=== PATIENT | male | born 1930 | race Caucasian/White ===

== ENCOUNTER 2018-02-15 22:02 | Inpatient (IN) | payer MEDICARE, OTHER ==
[2018-02-15] MEDS: ONDANSETRON 4 MG INJ IV (22:49)
[2018-02-15] MEDS: morphine 4 MG/ML VIAL IV (22:49)
[2018-02-15 22:56] LABS: ADD MAN DIFF? NO
[2018-02-15 22:58] LABS: BASOPHILS % 0.5 % (0.0-2.0); EOSINOPHILS % 0.3 % (0.0-7.0); HEMATOCRIT 35.8 % (42.0-52.0); HEMOGLOBIN 12.3 g/dl (14.0-18.0); LYMPHOCYTES # 1.3 10^3/ul (0.8-2.9); LYMPHOCYTES % 21.1 % (15.0-51.0); MEAN CORPUSCULAR HGB CONC 34.4 g/dl (32.0-37.0); MEAN CORPUSCULAR VOLUME 90.2 fl (82.0-101.0); MEAN PLATELET VOLUME 10.5 fl (7.4-10.4); MONOCYTE # 0.3 10^3/ul (0.3-0.9); MONOCYTES % 5.3 % (0.0-11.0); NEUTROPHIL # 4.5 10^3/ul (1.6-7.5); NEUTROPHILS % 72.2 % (39.0-77.0); PLATELET COUNT 153 10^3/UL (140-415); RED BLOOD COUNT 3.97 10^6/ul (4.70-6.10); RED CELL DISTRIBUTION WIDTH 14.8 % (11.5-14.5)
[2018-02-15 22:58] LABS: WHITE BLOOD COUNT 6.2 10^3/ul (4.8-10.8)
[2018-02-15 23:27] LABS: ALANINE AMINOTRANSFERASE 25 IU/L (13-69); ALBUMIN 3.7 g/dl (3.3-4.9); ALBUMIN/GLOBULIN RATIO 0.88; ALKALINE PHOSPHATASE 66 IU/L (42-121); ANION GAP 13 (8-16); ASPARTATE AMINO TRANSFERASE 24 IU/L (15-46); BILIRUBIN,INDIRECT 0.6 mg/dl (0-1.1); BILIRUBIN,TOTAL 0.6 mg/dl (0.2-1.3); BLOOD UREA NITROGEN 27 mg/dl (7-20); CARBON DIOXIDE 26 mmol/L (21-31); CHLORIDE 104 mmol/L (97-110); CREATININE 0.83 mg/dl (0.61-1.24); GLUCOSE 119 mg/dl (70-220); LIPASE 156 U/L (23-300); POTASSIUM 4.4 mmol/L (3.5-5.1); SODIUM 139 mmol/L (135-144); TOTAL PROTEIN 7.9 g/dl (6.1-8.1)
[2018-02-15 23:36] LABS: ADD UMIC YES; UR ASCORBIC ACID 40 mg/dL (NEGATIVE); UR BILIRUBIN (Dip) NEGATIVE (NEGATIVE); UR BLOOD (Dip) NEGATIVE (NEGATIVE); UR CALCIUM OXALATE CRYSTAL MANY /HPF (NONE SEEN); UR CLARITY SLIGHTLY CLOUDY (CLEAR); UR COLOR YELLOW (YELLOW); UR GLUCOSE (Dip) NEGATIVE (NEGATIVE); UR KETONES (Dip) NEGATIVE (NEGATIVE); UR LEUKOCYTE ESTERASE (Dip) NEGATIVE Leu/ul (NEGATIVE); UR MUCUS FEW /HPF (NONE SEEN); UR NITRITE (Dip) NEGATIVE (NEGATIVE); UR RBC 1 /HPF (0-5); UR SPECIFIC GRAVITY (Dip) 1.026 (1.003-1.030); UR TOTAL PROTEIN (Dip) 1+ mg/dl (NEGATIVE); UR UROBILINOGEN (Dip) 1+ mg/dL (NEGATIVE); UR WBC 0 /HPF (0-5)
[2018-02-16] MEDS: LIDOCAINE 2% JELLY 5 ML TOP (00:37)
[2018-02-16] MEDS ORDERED: ONDANSETRON 4 MG INJ IV (02:00)
[2018-02-16] MEDS ORDERED: morphine 2 MG INJ IV (02:00)
[2018-02-16] MEDS: DEXTROSE 5%-0.45% NACL 1,000 ML IV ×4 (02:06→23:22)
[2018-02-16 05:51] LABS: ADD MAN DIFF? NO
[2018-02-16 06:01] LABS: BASOPHILS % 0.2 % (0.0-2.0); EOSINOPHILS % 0.4 % (0.0-7.0); HEMATOCRIT 32.2 % (42.0-52.0); HEMOGLOBIN 10.9 g/dl (14.0-18.0); LYMPHOCYTES # 1.4 10^3/ul (0.8-2.9); LYMPHOCYTES % 30.6 % (15.0-51.0); MEAN CORPUSCULAR HEMOGLOBIN 30.9 pg (29.0-33.0); MEAN CORPUSCULAR HGB CONC 33.9 g/dl (32.0-37.0); MEAN CORPUSCULAR VOLUME 91.2 fl (82.0-101.0); MEAN PLATELET VOLUME 10.1 fl (7.4-10.4); MONOCYTE # 0.3 10^3/ul (0.3-0.9); MONOCYTES % 6.5 % (0.0-11.0); NEUTROPHIL # 2.9 10^3/ul (1.6-7.5); NEUTROPHILS % 61.9 % (39.0-77.0); PLATELET COUNT 129 10^3/UL (140-415); RED BLOOD COUNT 3.53 10^6/ul (4.70-6.10); RED CELL DISTRIBUTION WIDTH 14.9 % (11.5-14.5)
[2018-02-16 06:01] LABS: WHITE BLOOD COUNT 4.6 10^3/ul (4.8-10.8)
[2018-02-16] MEDS: PIPER-TAZO 2.25 GM (PMX) 50 ML IVPB ×3 (06:16→18:02)
[2018-02-16 06:25] LABS: ALANINE AMINOTRANSFERASE 21 IU/L (13-69); ALBUMIN 3.1 g/dl (3.3-4.9); ALBUMIN/GLOBULIN RATIO 0.79; ALKALINE PHOSPHATASE 53 IU/L (42-121); ANION GAP 10 (8-16); ASPARTATE AMINO TRANSFERASE 22 IU/L (15-46); BILIRUBIN,INDIRECT 0.6 mg/dl (0-1.1); BILIRUBIN,TOTAL 0.6 mg/dl (0.2-1.3); BLOOD UREA NITROGEN 22 mg/dl (7-20); CALCIUM 8.6 mg/dl (8.4-10.2); CARBON DIOXIDE 28 mmol/L (21-31); CHLORIDE 104 mmol/L (97-110); GLUCOSE 109 mg/dl (70-220); MAGNESIUM 2.1 mg/dl (1.7-2.5); PHOSPHORUS 2.7 mg/dl (2.5-4.9); SODIUM 138 mmol/L (135-144)
[2018-02-16] MEDS: BALSAM PERU/CASTOR OIL 60 GM TUBE TOP ×2 (16:23→21:15)
[2018-02-17] MEDS: PIPER-TAZO 2.25 GM (PMX) 50 ML IVPB ×3 (00:16→12:20)
[2018-02-17 06:06] LABS: ADD MAN DIFF? NO
[2018-02-17 06:08] LABS: WHITE BLOOD COUNT 4.3 10^3/ul (4.8-10.8)
[2018-02-17 06:08] LABS: BASOPHILS % 0.5 % (0.0-2.0); EOSINOPHILS % 0.5 % (0.0-7.0); HEMATOCRIT 33.8 % (42.0-52.0); HEMOGLOBIN 11.7 g/dl (14.0-18.0); LYMPHOCYTES # 1.8 10^3/ul (0.8-2.9); LYMPHOCYTES % 40.7 % (15.0-51.0); MEAN CORPUSCULAR HEMOGLOBIN 31.4 pg (29.0-33.0); MEAN CORPUSCULAR HGB CONC 34.6 g/dl (32.0-37.0); MEAN CORPUSCULAR VOLUME 90.6 fl (82.0-101.0); MEAN PLATELET VOLUME 9.9 fl (7.4-10.4); MONOCYTE # 0.3 10^3/ul (0.3-0.9); MONOCYTES % 6.3 % (0.0-11.0); NEUTROPHIL # 2.2 10^3/ul (1.6-7.5); NEUTROPHILS % 51.5 % (39.0-77.0); PLATELET COUNT 134 10^3/UL (140-415); RED BLOOD COUNT 3.73 10^6/ul (4.70-6.10); RED CELL DISTRIBUTION WIDTH 14.9 % (11.5-14.5)
[2018-02-17 06:58] LABS: ALANINE AMINOTRANSFERASE 15 IU/L (13-69); ALBUMIN/GLOBULIN RATIO 0.78; ALKALINE PHOSPHATASE 54 IU/L (42-121); ANION GAP 9 (8-16); ASPARTATE AMINO TRANSFERASE 19 IU/L (15-46); BILIRUBIN,INDIRECT 1.3 mg/dl (0-1.1); BILIRUBIN,TOTAL 1.3 mg/dl (0.2-1.3); BLOOD UREA NITROGEN 11 mg/dl (7-20); CALCIUM 8.9 mg/dl (8.4-10.2); CARBON DIOXIDE 27 mmol/L (21-31); CHLORIDE 108 mmol/L (97-110); CREATININE 0.89 mg/dl (0.61-1.24); GLUCOSE 91 mg/dl (70-220); POTASSIUM 4.7 mmol/L (3.5-5.1); SODIUM 139 mmol/L (135-144); TOTAL PROTEIN 6.8 g/dl (6.1-8.1)
[2018-02-17] MEDS: BALSAM PERU/CASTOR OIL 60 GM TUBE TOP ×2 (08:32→20:31)
[2018-02-17] MEDS: DEXTROSE 5%-0.45% NACL 1,000 ML IV (14:29)
[2018-02-18] MEDS: DEXTROSE 5%-0.45% NACL 1,000 ML IV ×3 (03:06→17:42)
[2018-02-18 10:00] LABS: ADD MAN DIFF? NO
[2018-02-18 10:01] LABS: WHITE BLOOD COUNT 3.7 10^3/ul (4.8-10.8)
[2018-02-18 10:01] LABS: BASOPHILS % 0.3 % (0.0-2.0); EOSINOPHILS % 0.5 % (0.0-7.0); HEMATOCRIT 34.2 % (42.0-52.0); HEMOGLOBIN 12.2 g/dl (14.0-18.0); LYMPHOCYTES # 1.4 10^3/ul (0.8-2.9); LYMPHOCYTES % 37.5 % (15.0-51.0); MEAN CORPUSCULAR HEMOGLOBIN 31.4 pg (29.0-33.0); MEAN CORPUSCULAR HGB CONC 35.7 g/dl (32.0-37.0); MEAN CORPUSCULAR VOLUME 88.1 fl (82.0-101.0); MEAN PLATELET VOLUME 9.8 fl (7.4-10.4); MONOCYTE # 0.2 10^3/ul (0.3-0.9); MONOCYTES % 5.9 % (0.0-11.0); NEUTROPHIL # 2.1 10^3/ul (1.6-7.5); NEUTROPHILS % 55.3 % (39.0-77.0); PLATELET COUNT 135 10^3/UL (140-415); RED BLOOD COUNT 3.88 10^6/ul (4.70-6.10); RED CELL DISTRIBUTION WIDTH 14.4 % (11.5-14.5)
[2018-02-18 10:20] LABS: ANION GAP 11 (8-16); BLOOD UREA NITROGEN 8 mg/dl (7-20); CALCIUM 8.4 mg/dl (8.4-10.2); CARBON DIOXIDE 24 mmol/L (21-31); CHLORIDE 104 mmol/L (97-110); CREATININE 0.63 mg/dl (0.61-1.24); GLUCOSE 98 mg/dl (70-220); POTASSIUM 3.3 mmol/L (3.5-5.1); SODIUM 136 mmol/L (135-144)
[2018-02-18] MEDS: BALSAM PERU/CASTOR OIL 60 GM TUBE TOP ×2 (12:27→20:39)
[2018-02-18] MEDS: POTASSIUM CHLORIDE 100 ML IVPB (21:49)
[2018-02-19] MEDS: DEXTROSE 5%-0.45% NACL 1,000 ML IV ×4 (05:14→20:00)
[2018-02-19 06:26] LABS: ADD MAN DIFF? NO
[2018-02-19 06:38] LABS: BASOPHILS % 0.6 % (0.0-2.0); EOSINOPHILS % 0.8 % (0.0-7.0); HEMATOCRIT 34.9 % (42.0-52.0); HEMOGLOBIN 12.4 g/dl (14.0-18.0); LYMPHOCYTES # 1.2 10^3/ul (0.8-2.9); LYMPHOCYTES % 34.4 % (15.0-51.0); MEAN CORPUSCULAR HEMOGLOBIN 31.5 pg (29.0-33.0); MEAN CORPUSCULAR HGB CONC 35.5 g/dl (32.0-37.0); MEAN CORPUSCULAR VOLUME 88.6 fl (82.0-101.0); MEAN PLATELET VOLUME 10.6 fl (7.4-10.4); MONOCYTE # 0.2 10^3/ul (0.3-0.9); MONOCYTES % 6.1 % (0.0-11.0); NEUTROPHIL # 2.1 10^3/ul (1.6-7.5); NEUTROPHILS % 57.8 % (39.0-77.0); PLATELET COUNT 117 10^3/UL (140-415); RED BLOOD COUNT 3.94 10^6/ul (4.70-6.10); RED CELL DISTRIBUTION WIDTH 14.7 % (11.5-14.5)
[2018-02-19 06:38] LABS: WHITE BLOOD COUNT 3.6 10^3/ul (4.8-10.8)
[2018-02-19 06:54] LABS: ANION GAP 12 (8-16); BLOOD UREA NITROGEN 8 mg/dl (7-20); CALCIUM 8.5 mg/dl (8.4-10.2); CARBON DIOXIDE 20 mmol/L (21-31); CHLORIDE 106 mmol/L (97-110); CREATININE 0.66 mg/dl (0.61-1.24); GLUCOSE 102 mg/dl (70-220); POTASSIUM 3.8 mmol/L (3.5-5.1); SODIUM 134 mmol/L (135-144)
[2018-02-19] MEDS: BALSAM PERU/CASTOR OIL 60 GM TUBE TOP ×2 (08:50→21:00)
[2018-02-19] MEDS: metroNIDAZOLE 500 MG TAB PO ×3 (16:02→22:00)
[2018-02-19] MEDS: CIPROFLOXACIN 500 MG TAB PO ×2 (16:02→17:22)
[2018-02-19] MEDS: LACTULOSE 30ML CUP PO (17:22)
[2018-02-19] MEDS: GLYCERIN (ADULT) SUPP PR (17:22)
[2018-02-19] MEDS ORDERED: morphine LIQ (10 MG/5 ML) CUP PO (18:00)
[2018-02-19] MEDS ORDERED: morphine 2 MG INJ IV (18:00)
[2018-02-20] MEDS: LACTULOSE 30ML CUP PO ×4 (00:25→18:00)
[2018-02-20] MEDS: DEXTROSE 5%-0.45% NACL 1,000 ML IV ×2 (00:25→13:08)
[2018-02-20] MEDS: CIPROFLOXACIN 500 MG TAB PO ×2 (05:37→18:00)
[2018-02-20] MEDS: metroNIDAZOLE 500 MG TAB PO ×3 (05:38→20:03)
[2018-02-20] MEDS: BALSAM PERU/CASTOR OIL 60 GM TUBE TOP ×2 (08:55→20:13)
[2018-02-20 10:37] LABS: ADD MAN DIFF? NO
[2018-02-20 10:42] LABS: BASOPHILS % 0.2 % (0.0-2.0); EOSINOPHILS % 0.4 % (0.0-7.0); HEMATOCRIT 34.8 % (42.0-52.0); HEMOGLOBIN 12.3 g/dl (14.0-18.0); LYMPHOCYTES # 1.6 10^3/ul (0.8-2.9); LYMPHOCYTES % 33.7 % (15.0-51.0); MEAN CORPUSCULAR HEMOGLOBIN 31.4 pg (29.0-33.0); MEAN CORPUSCULAR HGB CONC 35.3 g/dl (32.0-37.0); MEAN CORPUSCULAR VOLUME 88.8 fl (82.0-101.0); MEAN PLATELET VOLUME 9.8 fl (7.4-10.4); MONOCYTE # 0.4 10^3/ul (0.3-0.9); MONOCYTES % 9.3 % (0.0-11.0); NEUTROPHIL # 2.6 10^3/ul (1.6-7.5); PLATELET COUNT 138 10^3/UL (140-415); RED BLOOD COUNT 3.92 10^6/ul (4.70-6.10); RED CELL DISTRIBUTION WIDTH 14.8 % (11.5-14.5)
[2018-02-20 10:42] LABS: WHITE BLOOD COUNT 4.6 10^3/ul (4.8-10.8)
[2018-02-20] MEDS: GLYCERIN (ADULT) SUPP PR ×2 (10:42→13:07)
[2018-02-20 11:05] LABS: ANION GAP 15 (8-16); BLOOD UREA NITROGEN 6 mg/dl (7-20); CALCIUM 8.6 mg/dl (8.4-10.2); CARBON DIOXIDE 25 mmol/L (21-31); CHLORIDE 104 mmol/L (97-110); CREATININE 0.66 mg/dl (0.61-1.24); GLUCOSE 99 mg/dl (70-220); POTASSIUM 3.5 mmol/L (3.5-5.1); SODIUM 140 mmol/L (135-144)
[2018-02-21] MEDS: DEXTROSE 5%-0.45% NACL 1,000 ML IV ×3 (01:05→22:00)
[2018-02-21 05:24] LABS: ADD MAN DIFF? NO
[2018-02-21 05:30] LABS: WHITE BLOOD COUNT 4.4 10^3/ul (4.8-10.8)
[2018-02-21 05:30] LABS: BASOPHILS % 0.5 % (0.0-2.0); EOSINOPHILS % 0.7 % (0.0-7.0); HEMATOCRIT 33.5 % (42.0-52.0); LYMPHOCYTES # 1.7 10^3/ul (0.8-2.9); LYMPHOCYTES % 39.1 % (15.0-51.0); MEAN CORPUSCULAR HEMOGLOBIN 31.5 pg (29.0-33.0); MEAN CORPUSCULAR HGB CONC 35.8 g/dl (32.0-37.0); MEAN CORPUSCULAR VOLUME 87.9 fl (82.0-101.0); MEAN PLATELET VOLUME 10.1 fl (7.4-10.4); MONOCYTE # 0.3 10^3/ul (0.3-0.9); MONOCYTES % 7.6 % (0.0-11.0); NEUTROPHIL # 2.3 10^3/ul (1.6-7.5); NEUTROPHILS % 51.6 % (39.0-77.0); PLATELET COUNT 144 10^3/UL (140-415); RED BLOOD COUNT 3.81 10^6/ul (4.70-6.10)
[2018-02-21] MEDS: CIPROFLOXACIN 500 MG TAB PO ×3 (05:50→17:32)
[2018-02-21] MEDS: metroNIDAZOLE 500 MG TAB PO ×3 (05:50→13:16)
[2018-02-21] MEDS: LACTULOSE 30ML CUP PO ×5 (05:50→17:32)
[2018-02-21 05:59] LABS: ANION GAP 11 (8-16); BLOOD UREA NITROGEN 5 mg/dl (7-20); CALCIUM 8.4 mg/dl (8.4-10.2); CARBON DIOXIDE 23 mmol/L (21-31); CHLORIDE 108 mmol/L (97-110); CREATININE 0.65 mg/dl (0.61-1.24); GLUCOSE 98 mg/dl (70-220); POTASSIUM 3.2 mmol/L (3.5-5.1); SODIUM 139 mmol/L (135-144)
[2018-02-21] MEDS: BALSAM PERU/CASTOR OIL 60 GM TUBE TOP ×2 (10:32→21:48)
[2018-02-21] MEDS: BARIUM SULF 2% 450 ML BTL (BERRY SMOOTHIE) PO (11:27)
[2018-02-21] MEDS: IOHEXOL 300MG/ML 150 ML BTL (12:45)
[2018-02-21] MEDS: SOD CHLORIDE 0.9% 100 ML (12:45)
[2018-02-21] MEDS ORDERED: POTASSIUM CHLORIDE (SR) 20 MEQ TAB PO (19:06)
[2018-02-21] MEDS: metroNIDAZOLE 500 MG/NS (PMX) 100 ML IVPB (22:22)
[2018-02-21] MEDS: CIPROFLOXACIN 400MG/D5W 200 ML IVPB (23:29)
[2018-02-21] MEDS: POTASSIUM CHLORIDE 100 ML IVPB (23:29)
[2018-02-22] MEDS: metroNIDAZOLE 500 MG/NS (PMX) 100 ML IVPB ×3 (05:25→22:25)
[2018-02-22] MEDS: LACTULOSE 30ML CUP PO ×4 (05:38→17:07)
[2018-02-22 05:52] LABS: ADD MAN DIFF? NO
[2018-02-22 05:57] LABS: WHITE BLOOD COUNT 3.7 10^3/ul (4.8-10.8)
[2018-02-22 05:57] LABS: BASOPHILS % 0.5 % (0.0-2.0); EOSINOPHILS % 0.3 % (0.0-7.0); HEMATOCRIT 32.2 % (42.0-52.0); HEMOGLOBIN 11.4 g/dl (14.0-18.0); LYMPHOCYTES # 1.5 10^3/ul (0.8-2.9); LYMPHOCYTES % 41.6 % (15.0-51.0); MEAN CORPUSCULAR HEMOGLOBIN 31.1 pg (29.0-33.0); MEAN CORPUSCULAR HGB CONC 35.4 g/dl (32.0-37.0); MEAN PLATELET VOLUME 9.8 fl (7.4-10.4); MONOCYTE # 0.3 10^3/ul (0.3-0.9); MONOCYTES % 8.1 % (0.0-11.0); NEUTROPHIL # 1.8 10^3/ul (1.6-7.5); NEUTROPHILS % 49.2 % (39.0-77.0); PLATELET COUNT 147 10^3/UL (140-415); RED BLOOD COUNT 3.66 10^6/ul (4.70-6.10); RED CELL DISTRIBUTION WIDTH 14.9 % (11.5-14.5)
[2018-02-22 06:39] LABS: ANION GAP 14 (8-16); BLOOD UREA NITROGEN 6 mg/dl (7-20); CALCIUM 8.5 mg/dl (8.4-10.2); CARBON DIOXIDE 26 mmol/L (21-31); CHLORIDE 102 mmol/L (97-110); CREATININE 0.76 mg/dl (0.61-1.24); GLUCOSE 74 mg/dl (70-220); POTASSIUM 3.8 mmol/L (3.5-5.1); SODIUM 138 mmol/L (135-144)
[2018-02-22] MEDS: DEXTROSE 5%-0.45% NACL 1,000 ML IV ×2 (08:00→14:06)
[2018-02-22] MEDS: BALSAM PERU/CASTOR OIL 60 GM TUBE TOP ×2 (09:15→22:26)
[2018-02-22] MEDS: CIPROFLOXACIN 400MG/D5W 200 ML IVPB ×2 (09:15→20:46)
[2018-02-22 15:52] LABS: CARCINOEMBRYONIC ANTIGEN 1.1 ng/ml (0.0-5.0)
[2018-02-23] MEDS: DEXTROSE 5%-0.45% NACL 1,000 ML IV ×3 (04:56→21:38)
[2018-02-23] MEDS: metroNIDAZOLE 500 MG/NS (PMX) 100 ML IVPB ×3 (05:00→22:47)
[2018-02-23] MEDS: LACTULOSE 30ML CUP PO ×4 (05:00→18:00)
[2018-02-23 05:48] LABS: ADD MAN DIFF? NO
[2018-02-23 05:50] LABS: BASOPHILS % 0.3 % (0.0-2.0); EOSINOPHILS % 0.9 % (0.0-7.0); HEMATOCRIT 30.2 % (42.0-52.0); HEMOGLOBIN 10.7 g/dl (14.0-18.0); LYMPHOCYTES # 1.5 10^3/ul (0.8-2.9); LYMPHOCYTES % 45.2 % (15.0-51.0); MEAN CORPUSCULAR HGB CONC 35.4 g/dl (32.0-37.0); MEAN CORPUSCULAR VOLUME 87.5 fl (82.0-101.0); MEAN PLATELET VOLUME 10.2 fl (7.4-10.4); MONOCYTE # 0.3 10^3/ul (0.3-0.9); MONOCYTES % 7.9 % (0.0-11.0); NEUTROPHIL # 1.5 10^3/ul (1.6-7.5); NEUTROPHILS % 45.1 % (39.0-77.0); PLATELET COUNT 133 10^3/UL (140-415); RED BLOOD COUNT 3.45 10^6/ul (4.70-6.10); RED CELL DISTRIBUTION WIDTH 14.7 % (11.5-14.5)
[2018-02-23 05:50] LABS: WHITE BLOOD COUNT 3.4 10^3/ul (4.8-10.8)
[2018-02-23 06:25] LABS: C-REACTIVE PROTEIN < 0.5 mg/dl (0.0-0.9)
[2018-02-23] MEDS: CIPROFLOXACIN 400MG/D5W 200 ML IVPB ×2 (08:30→21:38)
[2018-02-23] MEDS: BALSAM PERU/CASTOR OIL 60 GM TUBE TOP ×2 (08:31→21:38)
[2018-02-23 08:32] LABS: ERYTHROCYTE SEDIMENTATION RATE 28 mm/Hr (0-20)
[2018-02-23 11:22] LABS: ANION GAP 13 (8-16); BLOOD UREA NITROGEN 8 mg/dl (7-20); CALCIUM 8.6 mg/dl (8.4-10.2); CARBON DIOXIDE 20 mmol/L (21-31); CHLORIDE 110 mmol/L (97-110); CREATININE 0.76 mg/dl (0.61-1.24); GLUCOSE 99 mg/dl (70-220); POTASSIUM 3.3 mmol/L (3.5-5.1); SODIUM 140 mmol/L (135-144)
[2018-02-23 11:23] LABS: MAGNESIUM 1.8 mg/dl (1.7-2.5)
[2018-02-23 11:23] LABS: PHOSPHORUS 2.9 mg/dl (2.5-4.9)
[2018-02-23] MEDS: POTASSIUM CHLORIDE 20 MEQ POWDER FOR ORAL SOLN PO ×2 (12:45→14:11)
[2018-02-24] MEDS: ACETAMINOPHEN 325 MG TAB PO (04:05)
[2018-02-24] MEDS: LACTULOSE 30ML CUP PO ×4 (05:27→18:06)
[2018-02-24] MEDS: metroNIDAZOLE 500 MG/NS (PMX) 100 ML IVPB ×3 (05:27→21:28)
[2018-02-24 06:33] LABS: ADD MAN DIFF? NO
[2018-02-24 06:40] LABS: BASOPHILS % 0.3 % (0.0-2.0); EOSINOPHILS % 0.3 % (0.0-7.0); HEMATOCRIT 33.2 % (42.0-52.0); HEMOGLOBIN 11.8 g/dl (14.0-18.0); LYMPHOCYTES # 1.2 10^3/ul (0.8-2.9); LYMPHOCYTES % 30.9 % (15.0-51.0); MEAN CORPUSCULAR HEMOGLOBIN 31.1 pg (29.0-33.0); MEAN CORPUSCULAR HGB CONC 35.5 g/dl (32.0-37.0); MEAN CORPUSCULAR VOLUME 87.4 fl (82.0-101.0); MEAN PLATELET VOLUME 9.7 fl (7.4-10.4); MONOCYTE # 0.3 10^3/ul (0.3-0.9); MONOCYTES % 8.1 % (0.0-11.0); NEUTROPHIL # 2.3 10^3/ul (1.6-7.5); NEUTROPHILS % 59.9 % (39.0-77.0); PLATELET COUNT 142 10^3/UL (140-415); RED CELL DISTRIBUTION WIDTH 14.7 % (11.5-14.5)
[2018-02-24 06:40] LABS: WHITE BLOOD COUNT 3.8 10^3/ul (4.8-10.8)
[2018-02-24 07:09] LABS: ANION GAP 13 (8-16); BLOOD UREA NITROGEN 6 mg/dl (7-20); CALCIUM 8.3 mg/dl (8.4-10.2); CARBON DIOXIDE 24 mmol/L (21-31); CHLORIDE 104 mmol/L (97-110); CREATININE 0.65 mg/dl (0.61-1.24); GLUCOSE 108 mg/dl (70-220); POTASSIUM 3.1 mmol/L (3.5-5.1); SODIUM 138 mmol/L (135-144)
[2018-02-24 07:18] LABS: MAGNESIUM 1.7 mg/dl (1.7-2.5)
[2018-02-24 07:18] LABS: PHOSPHORUS 2.5 mg/dl (2.5-4.9)
[2018-02-24] MEDS: CIPROFLOXACIN 400MG/D5W 200 ML IVPB ×2 (08:24→21:28)
[2018-02-24] MEDS: BALSAM PERU/CASTOR OIL 60 GM TUBE TOP ×2 (08:28→21:29)
[2018-02-24] MEDS: POTASSIUM CHLORIDE 20 MEQ POWDER FOR ORAL SOLN PO (13:06)
[2018-02-24] MEDS: DEXTROSE 5%-0.45% NACL 1,000 ML IV ×2 (13:06→20:00)
[2018-02-24] MEDS: OLANZAPINE 5 MG TAB PO (18:06)
[2018-02-24] MEDS: MESALAMINE 1000 MG SUPP PR (21:28)
[2018-02-25] MEDS: LACTULOSE 30ML CUP PO ×5 (00:10→23:39)
[2018-02-25] MEDS: DEXTROSE 5%-0.45% NACL 1,000 ML IV ×2 (04:41→16:32)
[2018-02-25] MEDS: metroNIDAZOLE 500 MG/NS (PMX) 100 ML IVPB ×3 (05:02→22:18)
[2018-02-25 06:13] LABS: ADD MAN DIFF? NO
[2018-02-25 06:27] LABS: BASOPHILS % 0.3 % (0.0-2.0); EOSINOPHILS % 0.5 % (0.0-7.0); HEMOGLOBIN 12.5 g/dl (14.0-18.0); LYMPHOCYTES # 1.7 10^3/ul (0.8-2.9); LYMPHOCYTES % 43.5 % (15.0-51.0); MEAN CORPUSCULAR HEMOGLOBIN 31.6 pg (29.0-33.0); MEAN CORPUSCULAR HGB CONC 35.7 g/dl (32.0-37.0); MEAN CORPUSCULAR VOLUME 88.6 fl (82.0-101.0); MEAN PLATELET VOLUME 10.2 fl (7.4-10.4); MONOCYTE # 0.3 10^3/ul (0.3-0.9); MONOCYTES % 8.6 % (0.0-11.0); NEUTROPHIL # 1.8 10^3/ul (1.6-7.5); NEUTROPHILS % 46.8 % (39.0-77.0); PLATELET COUNT 155 10^3/UL (140-415); RED BLOOD COUNT 3.95 10^6/ul (4.70-6.10)
[2018-02-25 06:27] LABS: WHITE BLOOD COUNT 3.8 10^3/ul (4.8-10.8)
[2018-02-25 06:46] LABS: MAGNESIUM 1.9 mg/dl (1.7-2.5)
[2018-02-25 06:51] LABS: ALANINE AMINOTRANSFERASE 26 IU/L (13-69); ALBUMIN 3.3 g/dl (3.3-4.9); ALKALINE PHOSPHATASE 58 IU/L (42-121); ANION GAP 12 (8-16); ASPARTATE AMINO TRANSFERASE 25 IU/L (15-46); BILIRUBIN,INDIRECT 1.1 mg/dl (0-1.1); BILIRUBIN,TOTAL 1.1 mg/dl (0.2-1.3); BLOOD UREA NITROGEN 6 mg/dl (7-20); CALCIUM 8.7 mg/dl (8.4-10.2); CARBON DIOXIDE 27 mmol/L (21-31); CHLORIDE 108 mmol/L (97-110); CREATININE 0.73 mg/dl (0.61-1.24); GLUCOSE 90 mg/dl (70-220); POTASSIUM 3.2 mmol/L (3.5-5.1); SODIUM 144 mmol/L (135-144); TOTAL PROTEIN 7.4 g/dl (6.1-8.1)
[2018-02-25] MEDS: OLANZAPINE 5 MG TAB PO (08:49)
[2018-02-25] MEDS: CIPROFLOXACIN 400MG/D5W 200 ML IVPB ×2 (08:49→20:33)
[2018-02-25] MEDS: BALSAM PERU/CASTOR OIL 60 GM TUBE TOP ×2 (08:50→20:34)
[2018-02-25] MEDS: POTASSIUM CHLORIDE 20 MEQ POWDER FOR ORAL SOLN PO (11:35)
[2018-02-25] MEDS: CEFAZOLIN 1 GM/50 ML (PMX) 50 ML IVPB (15:30)
[2018-02-25] MEDS: MESALAMINE 1000 MG SUPP PR (20:34)
[2018-02-26] MEDS: DEXTROSE 5%-0.45% NACL 1,000 ML IV ×3 (01:49→22:00)
[2018-02-26] MEDS: LACTULOSE 30ML CUP PO ×3 (05:20→18:00)
[2018-02-26] MEDS: metroNIDAZOLE 500 MG/NS (PMX) 100 ML IVPB ×3 (05:30→21:59)
[2018-02-26 05:51] LABS: ADD MAN DIFF? NO
[2018-02-26 05:55] LABS: WHITE BLOOD COUNT 4.7 10^3/ul (4.8-10.8)
[2018-02-26 05:55] LABS: BASOPHILS % 0.6 % (0.0-2.0); EOSINOPHILS % 0.6 % (0.0-7.0); HEMATOCRIT 34.8 % (42.0-52.0); HEMOGLOBIN 12.2 g/dl (14.0-18.0); LYMPHOCYTES % 43.5 % (15.0-51.0); MEAN CORPUSCULAR HEMOGLOBIN 31.3 pg (29.0-33.0); MEAN CORPUSCULAR HGB CONC 35.1 g/dl (32.0-37.0); MEAN CORPUSCULAR VOLUME 89.2 fl (82.0-101.0); MEAN PLATELET VOLUME 9.8 fl (7.4-10.4); MONOCYTE # 0.4 10^3/ul (0.3-0.9); MONOCYTES % 8.3 % (0.0-11.0); NEUTROPHIL # 2.2 10^3/ul (1.6-7.5); NEUTROPHILS % 46.6 % (39.0-77.0); PLATELET COUNT 169 10^3/UL (140-415); RED CELL DISTRIBUTION WIDTH 14.9 % (11.5-14.5)
[2018-02-26 06:17] LABS: INR 1.54; PROTIME 18.8 Sec (11.9-14.9); PT RATIO 1.5
[2018-02-26 06:33] LABS: MAGNESIUM 1.7 mg/dl (1.7-2.5)
[2018-02-26 06:33] LABS: PHOSPHORUS 2.6 mg/dl (2.5-4.9)
[2018-02-26 06:39] LABS: ANION GAP 14 (8-16); BLOOD UREA NITROGEN 6 mg/dl (7-20); CALCIUM 8.5 mg/dl (8.4-10.2); CARBON DIOXIDE 28 mmol/L (21-31); CHLORIDE 102 mmol/L (97-110); CREATININE 0.68 mg/dl (0.61-1.24); GLUCOSE 107 mg/dl (70-220); SODIUM 141 mmol/L (135-144)
[2018-02-26 06:52] LABS: POTASSIUM 2.9 mmol/L (3.5-5.1)
[2018-02-26] MEDS: POTASSIUM CHLORIDE 100 ML IVPB ×3 (07:53→15:02)
[2018-02-26] MEDS: OLANZAPINE 5 MG TAB PO (09:00)
[2018-02-26] MEDS: BALSAM PERU/CASTOR OIL 60 GM TUBE TOP ×2 (09:53→20:41)
[2018-02-26] MEDS: CIPROFLOXACIN 400MG/D5W 200 ML IVPB ×2 (09:53→20:40)
[2018-02-26] MEDS: MAGNESIUM SULFATE 2 GM/50 ML 50 ML IVPB (13:00)
[2018-02-26 15:29] LABS: POTASSIUM 3.8 mmol/L (3.5-5.1)
[2018-02-26] MEDS: CEFAZOLIN 1 GM/50 ML (PMX) 50 ML IVPB (16:11)
[2018-02-26] MEDS: PROPOFOL 20 ML (16:11)
[2018-02-26] MEDS: EPINEPHrine 0.1 MG/ML SYG (16:35)
[2018-02-26] MEDS: PHENYLephrine (100 MCG/ML) 5ML SYG (16:38)
[2018-02-26] MEDS: MESALAMINE 1000 MG SUPP PR (20:40)
[2018-02-27 04:56] LABS: ADD MAN DIFF? NO
[2018-02-27 05:01] LABS: WHITE BLOOD COUNT 5.2 10^3/ul (4.8-10.8)
[2018-02-27 05:01] LABS: BASOPHILS % 0.4 % (0.0-2.0); EOSINOPHILS % 0.4 % (0.0-7.0); HEMOGLOBIN 11.7 g/dl (14.0-18.0); LYMPHOCYTES # 1.4 10^3/ul (0.8-2.9); LYMPHOCYTES % 26.5 % (15.0-51.0); MEAN CORPUSCULAR HEMOGLOBIN 31.5 pg (29.0-33.0); MEAN CORPUSCULAR HGB CONC 35.5 g/dl (32.0-37.0); MEAN CORPUSCULAR VOLUME 88.9 fl (82.0-101.0); MEAN PLATELET VOLUME 9.9 fl (7.4-10.4); MONOCYTE # 0.4 10^3/ul (0.3-0.9); MONOCYTES % 7.9 % (0.0-11.0); NEUTROPHIL # 3.4 10^3/ul (1.6-7.5); NEUTROPHILS % 64.4 % (39.0-77.0); PLATELET COUNT 154 10^3/UL (140-415); RED BLOOD COUNT 3.71 10^6/ul (4.70-6.10); RED CELL DISTRIBUTION WIDTH 15.2 % (11.5-14.5)
[2018-02-27] MEDS: LACTULOSE 30ML CUP PO ×5 (05:09→17:41)
[2018-02-27] MEDS: metroNIDAZOLE 500 MG/NS (PMX) 100 ML IVPB ×3 (05:09→22:31)
[2018-02-27 05:11] LABS: ANION GAP 15 (8-16); BLOOD UREA NITROGEN 6 mg/dl (7-20); CALCIUM 8.4 mg/dl (8.4-10.2); CARBON DIOXIDE 26 mmol/L (21-31); CHLORIDE 102 mmol/L (97-110); CREATININE 0.68 mg/dl (0.61-1.24); GLUCOSE 121 mg/dl (70-220); POTASSIUM 4.3 mmol/L (3.5-5.1); SODIUM 139 mmol/L (135-144)
[2018-02-27 05:16] LABS: MAGNESIUM 2.3 mg/dl (1.7-2.5)
[2018-02-27 05:16] LABS: PHOSPHORUS 2.5 mg/dl (2.5-4.9)
[2018-02-27] MEDS: DEXTROSE 5%-0.45% NACL 1,000 ML IV ×3 (06:24→22:33)
[2018-02-27] MEDS: CIPROFLOXACIN 400MG/D5W 200 ML IVPB ×2 (08:47→20:09)
[2018-02-27] MEDS: OLANZAPINE 5 MG TAB PO (08:48)
[2018-02-27] MEDS: BALSAM PERU/CASTOR OIL 60 GM TUBE TOP ×2 (08:49→20:11)
[2018-02-27] MEDS: ACETAMINOPHEN 325 MG TAB PO (11:32)
[2018-02-27] MEDS: MESALAMINE 1000 MG SUPP PR (20:10)
[2018-02-28 04:57] LABS: ADD MAN DIFF? NO
[2018-02-28 05:01] LABS: WHITE BLOOD COUNT 5.5 10^3/ul (4.8-10.8)
[2018-02-28 05:01] LABS: BASOPHILS % 0.2 % (0.0-2.0); EOSINOPHILS % 0.4 % (0.0-7.0); HEMOGLOBIN 11.4 g/dl (14.0-18.0); LYMPHOCYTES # 1.5 10^3/ul (0.8-2.9); LYMPHOCYTES % 27.4 % (15.0-51.0); MEAN CORPUSCULAR HEMOGLOBIN 31.4 pg (29.0-33.0); MEAN CORPUSCULAR HGB CONC 35.6 g/dl (32.0-37.0); MEAN CORPUSCULAR VOLUME 88.2 fl (82.0-101.0); MEAN PLATELET VOLUME 9.9 fl (7.4-10.4); MONOCYTE # 0.4 10^3/ul (0.3-0.9); MONOCYTES % 7.3 % (0.0-11.0); NEUTROPHIL # 3.6 10^3/ul (1.6-7.5); NEUTROPHILS % 64.5 % (39.0-77.0); PLATELET COUNT 145 10^3/UL (140-415); RED BLOOD COUNT 3.63 10^6/ul (4.70-6.10)
[2018-02-28] MEDS: LACTULOSE 30ML CUP PO ×4 (05:01→17:39)
[2018-02-28] MEDS: metroNIDAZOLE 500 MG/NS (PMX) 100 ML IVPB ×3 (05:08→23:01)
[2018-02-28 05:17] LABS: INR 1.71; PROTIME 20.4 Sec (11.9-14.9); PT RATIO 1.6
[2018-02-28 05:22] LABS: ANION GAP 14 (8-16); BLOOD UREA NITROGEN 8 mg/dl (7-20); CALCIUM 8.2 mg/dl (8.4-10.2); CARBON DIOXIDE 23 mmol/L (21-31); CHLORIDE 105 mmol/L (97-110); CREATININE 0.63 mg/dl (0.61-1.24); GLUCOSE 116 mg/dl (70-220); POTASSIUM 3.4 mmol/L (3.5-5.1); SODIUM 139 mmol/L (135-144)
[2018-02-28 05:23] LABS: PHOSPHORUS 2.6 mg/dl (2.5-4.9)
[2018-02-28 05:23] LABS: MAGNESIUM 1.9 mg/dl (1.7-2.5)
[2018-02-28] MEDS: OLANZAPINE 5 MG TAB PO (09:00)
[2018-02-28] MEDS: CIPROFLOXACIN 400MG/D5W 200 ML IVPB ×2 (10:34→21:55)
[2018-02-28] MEDS: BALSAM PERU/CASTOR OIL 60 GM TUBE TOP ×2 (10:37→22:00)
[2018-02-28] MEDS: DEXTROSE 5%-0.45% NACL 1,000 ML IV (13:42)
[2018-02-28] MEDS: POTASSIUM CHLORIDE 100 ML IVPB (14:46)
[2018-02-28] MEDS: PHYTONADIONE 10 MG/ML INJ SC (17:38)
[2018-02-28] MEDS: MESALAMINE 1000 MG SUPP PR (21:55)
[2018-03-01] MEDS: LACTULOSE 30ML CUP PO ×5 (05:14→23:21)
[2018-03-01] MEDS: metroNIDAZOLE 500 MG/NS (PMX) 100 ML IVPB ×3 (05:15→22:00)
[2018-03-01] MEDS: DEXTROSE 5%-0.45% NACL 1,000 ML IV ×3 (06:34→20:00)
[2018-03-01 06:57] LABS: ADD MAN DIFF? NO
[2018-03-01 07:02] LABS: BASOPHILS % 0.4 % (0.0-2.0); EOSINOPHILS % 0.2 % (0.0-7.0); HEMATOCRIT 32.6 % (42.0-52.0); HEMOGLOBIN 11.4 g/dl (14.0-18.0); LYMPHOCYTES # 1.1 10^3/ul (0.8-2.9); LYMPHOCYTES % 22.4 % (15.0-51.0); MEAN CORPUSCULAR HEMOGLOBIN 31.3 pg (29.0-33.0); MEAN CORPUSCULAR VOLUME 89.6 fl (82.0-101.0); MEAN PLATELET VOLUME 9.8 fl (7.4-10.4); MONOCYTE # 0.4 10^3/ul (0.3-0.9); MONOCYTES % 8.2 % (0.0-11.0); NEUTROPHIL # 3.3 10^3/ul (1.6-7.5); NEUTROPHILS % 68.2 % (39.0-77.0); PLATELET COUNT 134 10^3/UL (140-415); RED BLOOD COUNT 3.64 10^6/ul (4.70-6.10); RED CELL DISTRIBUTION WIDTH 15.3 % (11.5-14.5)
[2018-03-01 07:02] LABS: WHITE BLOOD COUNT 4.9 10^3/ul (4.8-10.8)
[2018-03-01 07:23] LABS: PHOSPHORUS 2.4 mg/dl (2.5-4.9)
[2018-03-01 07:23] LABS: INR 1.56; MAGNESIUM 1.8 mg/dl (1.7-2.5); PT RATIO 1.5
[2018-03-01 07:24] LABS: PARTIAL THROMBOPLASTIN TIME 34.9 Sec (25.0-35.0)
[2018-03-01 07:35] LABS: ANION GAP 15 (8-16); BLOOD UREA NITROGEN 6 mg/dl (7-20); CALCIUM 8.3 mg/dl (8.4-10.2); CARBON DIOXIDE 27 mmol/L (21-31); CHLORIDE 101 mmol/L (97-110); CREATININE 0.64 mg/dl (0.61-1.24); GLUCOSE 88 mg/dl (70-220); POTASSIUM 3.2 mmol/L (3.5-5.1); SODIUM 140 mmol/L (135-144)
[2018-03-01] MEDS: OLANZAPINE 5 MG TAB PO (08:36)
[2018-03-01] MEDS ORDERED: POTASSIUM CHLORIDE 50 ML IVPB (09:00)
[2018-03-01] MEDS: CIPROFLOXACIN 400MG/D5W 200 ML IVPB ×2 (09:42→23:20)
[2018-03-01] MEDS: BALSAM PERU/CASTOR OIL 60 GM TUBE TOP ×2 (09:44→23:22)
[2018-03-01] MEDS: POTASSIUM CHLORIDE 20 MEQ/SW 100 ML IVPB (11:01)
[2018-03-01 13:22] LABS: TYPE AND SCREEN 1 1
[2018-03-01] MEDS: PROPOFOL 20 ML (18:48)
[2018-03-01] MEDS: MESALAMINE 1000 MG SUPP PR (23:22)
[2018-03-02] MEDS: ACETAMINOPHEN 325 MG TAB PO (01:18)
[2018-03-02] MEDS: LACTULOSE 30ML CUP PO ×4 (05:11→23:19)
[2018-03-02] MEDS: metroNIDAZOLE 500 MG/NS (PMX) 100 ML IVPB ×3 (05:11→22:24)
[2018-03-02 05:38] LABS: ADD MAN DIFF? NO
[2018-03-02 05:43] LABS: WHITE BLOOD COUNT 5.8 10^3/ul (4.8-10.8)
[2018-03-02 05:43] LABS: BASOPHILS % 0.2 % (0.0-2.0); EOSINOPHILS % 0.2 % (0.0-7.0); HEMATOCRIT 32.7 % (42.0-52.0); HEMOGLOBIN 11.3 g/dl (14.0-18.0); LYMPHOCYTES % 17.7 % (15.0-51.0); MEAN CORPUSCULAR HEMOGLOBIN 30.9 pg (29.0-33.0); MEAN CORPUSCULAR HGB CONC 34.6 g/dl (32.0-37.0); MEAN CORPUSCULAR VOLUME 89.3 fl (82.0-101.0); MEAN PLATELET VOLUME 9.7 fl (7.4-10.4); MONOCYTE # 0.4 10^3/ul (0.3-0.9); MONOCYTES % 6.9 % (0.0-11.0); NEUTROPHIL # 4.3 10^3/ul (1.6-7.5); NEUTROPHILS % 74.5 % (39.0-77.0); PLATELET COUNT 140 10^3/UL (140-415); RED BLOOD COUNT 3.66 10^6/ul (4.70-6.10); RED CELL DISTRIBUTION WIDTH 15.1 % (11.5-14.5)
[2018-03-02 05:56] LABS: ANION GAP 16 (8-16); BLOOD UREA NITROGEN 8 mg/dl (7-20); CALCIUM 8.9 mg/dl (8.4-10.2); CARBON DIOXIDE 28 mmol/L (21-31); CHLORIDE 100 mmol/L (97-110); CREATININE 0.61 mg/dl (0.61-1.24); GLUCOSE 89 mg/dl (70-220); POTASSIUM 3.5 mmol/L (3.5-5.1); SODIUM 140 mmol/L (135-144)
[2018-03-02] MEDS: DEXTROSE 5%-0.45% NACL 1,000 ML IV (06:00)
[2018-03-02 06:04] LABS: MAGNESIUM 1.9 mg/dl (1.7-2.5)
[2018-03-02] MEDS: BALSAM PERU/CASTOR OIL 60 GM TUBE TOP ×2 (08:56→20:28)
[2018-03-02] MEDS: CIPROFLOXACIN 400MG/D5W 200 ML IVPB ×2 (08:56→20:27)
[2018-03-02] MEDS: OLANZAPINE 5 MG TAB PO (08:58)
[2018-03-02] MEDS: MESALAMINE 1000 MG SUPP PR (20:28)
[2018-03-03] MEDS: LACTULOSE 30ML CUP PO ×4 (05:36→23:03)
[2018-03-03] MEDS: metroNIDAZOLE 500 MG/NS (PMX) 100 ML IVPB ×3 (05:36→23:03)
[2018-03-03 06:26] LABS: ADD MAN DIFF? NO
[2018-03-03 06:35] LABS: BASOPHILS % 0.4 % (0.0-2.0); EOSINOPHILS % 0.4 % (0.0-7.0); HEMATOCRIT 31.4 % (42.0-52.0); LYMPHOCYTES # 1.1 10^3/ul (0.8-2.9); LYMPHOCYTES % 20.2 % (15.0-51.0); MEAN CORPUSCULAR HEMOGLOBIN 31.5 pg (29.0-33.0); MEAN PLATELET VOLUME 11.4 fl (7.4-10.4); MONOCYTE # 0.5 10^3/ul (0.3-0.9); NEUTROPHILS % 70.5 % (39.0-77.0); POSITIVE DIFF @See below; RED BLOOD COUNT 3.49 10^6/ul (4.70-6.10); RED CELL DISTRIBUTION WIDTH 14.9 % (11.5-14.5)
[2018-03-03 06:35] LABS: WHITE BLOOD COUNT 5.6 10^3/ul (4.8-10.8)
[2018-03-03 06:48] LABS: PLATELET COUNT 110 10^3/UL (140-415)
[2018-03-03 07:02] LABS: ANION GAP 16 (8-16); BLOOD UREA NITROGEN 12 mg/dl (7-20); CALCIUM 8.5 mg/dl (8.4-10.2); CARBON DIOXIDE 28 mmol/L (21-31); CHLORIDE 99 mmol/L (97-110); CREATININE 0.58 mg/dl (0.61-1.24); GLUCOSE 104 mg/dl (70-220); POTASSIUM 3.8 mmol/L (3.5-5.1); SODIUM 139 mmol/L (135-144)
[2018-03-03] MEDS: CIPROFLOXACIN 400MG/D5W 200 ML IVPB ×2 (09:04→21:46)
[2018-03-03] MEDS: OLANZAPINE 5 MG TAB PO (09:04)
[2018-03-03] MEDS: BALSAM PERU/CASTOR OIL 60 GM TUBE TOP ×2 (09:04→21:47)
[2018-03-03] MEDS: MESALAMINE 1000 MG SUPP PR (21:46)
[2018-03-04] MEDS: LACTULOSE 30ML CUP PO ×3 (05:32→17:30)
[2018-03-04] MEDS: metroNIDAZOLE 500 MG/NS (PMX) 100 ML IVPB (05:32)
[2018-03-04 05:42] LABS: ADD MAN DIFF? NO
[2018-03-04 05:45] LABS: WHITE BLOOD COUNT 5.1 10^3/ul (4.8-10.8)
[2018-03-04 05:45] LABS: BASOPHILS % 0.2 % (0.0-2.0); EOSINOPHILS % 0.6 % (0.0-7.0); HEMATOCRIT 29.5 % (42.0-52.0); HEMOGLOBIN 10.2 g/dl (14.0-18.0); LYMPHOCYTES # 1.3 10^3/ul (0.8-2.9); LYMPHOCYTES % 24.8 % (15.0-51.0); MEAN CORPUSCULAR HEMOGLOBIN 31.5 pg (29.0-33.0); MEAN CORPUSCULAR HGB CONC 34.6 g/dl (32.0-37.0); MEAN PLATELET VOLUME 10.4 fl (7.4-10.4); MONOCYTE # 0.4 10^3/ul (0.3-0.9); MONOCYTES % 8.3 % (0.0-11.0); NEUTROPHIL # 3.3 10^3/ul (1.6-7.5); NEUTROPHILS % 65.9 % (39.0-77.0); PLATELET COUNT 150 10^3/UL (140-415); RED BLOOD COUNT 3.24 10^6/ul (4.70-6.10); RED CELL DISTRIBUTION WIDTH 15.1 % (11.5-14.5)
[2018-03-04 06:05] LABS: ANION GAP 11 (8-16); BLOOD UREA NITROGEN 15 mg/dl (7-20); CALCIUM 8.2 mg/dl (8.4-10.2); CARBON DIOXIDE 27 mmol/L (21-31); CHLORIDE 104 mmol/L (97-110); CREATININE 0.52 mg/dl (0.61-1.24); GLUCOSE 115 mg/dl (70-220); SODIUM 138 mmol/L (135-144)
[2018-03-04] MEDS: OLANZAPINE 5 MG TAB PO ×2 (09:43→21:10)
[2018-03-04] MEDS: BALSAM PERU/CASTOR OIL 60 GM TUBE TOP ×2 (09:44→21:11)
[2018-03-04] MEDS: MESALAMINE 1000 MG SUPP PR (21:10)
[2018-03-05] MEDS: LACTULOSE 30ML CUP PO ×3 (00:19→12:11)
[2018-03-05 05:54] LABS: ADD MAN DIFF? NO
[2018-03-05 06:04] LABS: WHITE BLOOD COUNT 4.4 10^3/ul (4.8-10.8)
[2018-03-05 06:04] LABS: BASOPHILS % 0.7 % (0.0-2.0); EOSINOPHILS % 0.5 % (0.0-7.0); HEMATOCRIT 30.5 % (42.0-52.0); HEMOGLOBIN 10.3 g/dl (14.0-18.0); LYMPHOCYTES # 1.4 10^3/ul (0.8-2.9); LYMPHOCYTES % 32.5 % (15.0-51.0); MEAN CORPUSCULAR HEMOGLOBIN 31.2 pg (29.0-33.0); MEAN CORPUSCULAR HGB CONC 33.8 g/dl (32.0-37.0); MEAN CORPUSCULAR VOLUME 92.4 fl (82.0-101.0); MEAN PLATELET VOLUME 10.5 fl (7.4-10.4); MONOCYTE # 0.4 10^3/ul (0.3-0.9); MONOCYTES % 9.2 % (0.0-11.0); NEUTROPHIL # 2.5 10^3/ul (1.6-7.5); NEUTROPHILS % 56.6 % (39.0-77.0); PLATELET COUNT 163 10^3/UL (140-415)
[2018-03-05 06:58] LABS: ANION GAP 11 (8-16); BLOOD UREA NITROGEN 16 mg/dl (7-20); CALCIUM 8.2 mg/dl (8.4-10.2); CARBON DIOXIDE 28 mmol/L (21-31); CHLORIDE 106 mmol/L (97-110); CREATININE 0.54 mg/dl (0.61-1.24); GLUCOSE 131 mg/dl (70-220); POTASSIUM 3.8 mmol/L (3.5-5.1); SODIUM 141 mmol/L (135-144)
[2018-03-05] MEDS: BALSAM PERU/CASTOR OIL 60 GM TUBE TOP (08:44)
[2018-03-05] MEDS: OLANZAPINE 5 MG TAB PO (08:44)
== END 2018-03-05 18:03 | disposition home health service (06) | DRG 392 ==
LOC: PP2 02-20 04:12 → E/R 22:02
PROC: 0DJ08ZZ Inspection of Upper Intestinal Tract, Via Natural or Artificial Opening Endoscopic (ICD-10-PCS; principal; 2018-02-26 15:25)
PROC: 0DH63UZ Insertion of Feeding Device into Stomach, Percutaneous Approach (ICD-10-PCS; 2018-02-26 15:25)
PROC: 30233K1 Transfusion of Nonautologous Frozen Plasma into Peripheral Vein, Percutaneous Approach (ICD-10-PCS; 2018-02-26 15:25)
DX: K52.9 Noninfective gastroenteritis and colitis, unspecified (principal); Z68.1 Body mass index [BMI] 19.9 or less, adult; E44.0 Moderate protein-calorie malnutrition; Q27.33 Arteriovenous malformation of digestive system vessel; F32.9 Major depressive disorder, single episode, unspecified; K56.41 Fecal impaction; D64.9 Anemia, unspecified; I10 Essential (primary) hypertension; R13.10 Dysphagia, unspecified
CPT/HCPCS: 36415; 36430; 74176; 74177; 80048; 80053; 81001; 82378; 83690; 83735; 84100; 84132; 85025; 85610; 85651; 85730; 86140; 86850; 86900; 86901; 87045; 87075; 92610; 93005; 96374; 96375; 97116; 97161; 97162; 97165; 97168; 97530; 97535; 99285-25; G0378

== ENCOUNTER 2018-05-01 09:36 | Emergency (ER) | payer MEDICARE, OTHER | END 2018-05-01 11:29 | disposition home or self-care (01) | LOC: E/R 09:36 | DX: Z43.1 Encounter for attention to gastrostomy (principal); Z87.891 Personal history of nicotine dependence | CPT/HCPCS: 99282 ==

== ENCOUNTER 2018-10-01 12:45 | Day surgery (SDC) | payer MEDICARE, OTHER | END 2018-10-01 17:18 | disposition home or self-care (01) | LOC: GIL 12:45 | DX: K94.23 Gastrostomy malfunction (principal); R63.3 Feeding difficulties; Y84.8 Other medical procedures as the cause of abnormal reaction of the patient, or of later complication, without mention of misadventure at the time of the procedure; Y82.8 Other medical devices associated with adverse incidents | CPT/HCPCS: 43246; 43762 ==